=== PATIENT | male | born 1945 | race Caucasian/White ===

== ENCOUNTER → 2020-08-03 | Outpatient (CLI) | payer OTHER | LOC: HYPER 13:14 | PROVIDERS: ATTEND Emergency Medicine | DX: T81.89XA Other complications of procedures, not elsewhere classified, initial encounter (principal); E11.621 Type 2 diabetes mellitus with foot ulcer; L89.893 Pressure ulcer of other site, stage 3; L97.521 Non-pressure chronic ulcer of other part of left foot limited to breakdown of skin; E11.21 Type 2 diabetes mellitus with diabetic nephropathy; E11.319 Type 2 diabetes mellitus with unspecified diabetic retinopathy without macular edema; E11.40 Type 2 diabetes mellitus with diabetic neuropathy, unspecified; E11.22 Type 2 diabetes mellitus with diabetic chronic kidney disease; I13.0 Hypertensive heart and chronic kidney disease with heart failure and stage 1 through stage 4 chronic kidney disease, or unspecified chronic kidney disease; N18.9 Chronic kidney disease, unspecified; I50.9 Heart failure, unspecified; E66.01 Morbid (severe) obesity due to excess calories; E78.5 Hyperlipidemia, unspecified; I25.10 Atherosclerotic heart disease of native coronary artery without angina pectoris; I25.5 Ischemic cardiomyopathy; I48.0 Paroxysmal atrial fibrillation; K21.9 Gastro-esophageal reflux disease without esophagitis; Z79.82 Long term (current) use of aspirin; Z95.0 Presence of cardiac pacemaker; Z79.4 Long term (current) use of insulin; Z87.891 Personal history of nicotine dependence; Z95.1 Presence of aortocoronary bypass graft; Z98.49 Cataract extraction status, unspecified eye; Z68.41 Body mass index [BMI] 40.0-44.9, adult; Y92.238 Other place in hospital as the place of occurrence of the external cause; Y83.8 Other surgical procedures as the cause of abnormal reaction of the patient, or of later complication, without mention of misadventure at the time of the procedure ==

== ENCOUNTER → 2020-09-12 | Outpatient (CLI) | payer OTHER ==
[~2020-09-12] MED LIST: ASA81BEC PO; CARVEDILOL6.25 M1 PO; CLOPIDOGREL75 MG PO; HYDRALAZINE 2525 M1 PO; LIPITOR80 MG PO; NEURONTIN 400M400 M2 PO; NOVOLIN N100 UNIT/3 SUBQ; PACERONE 200 M200 M1 PO; PAIN RELIEF325 MG PO; PROTONIX40 M2 PO; ROXICODONE5 M2 PO; TAMSULOSIN HCL0.4 MG PO; TRAMADOL 50 MG50 MG PO
== END ==
LOC: HYPER 08-29 11:38
PROVIDERS: ATTEND Emergency Medicine
DX: T81.89XD Other complications of procedures, not elsewhere classified, subsequent encounter (principal); E11.621 Type 2 diabetes mellitus with foot ulcer; L89.893 Pressure ulcer of other site, stage 3; L97.521 Non-pressure chronic ulcer of other part of left foot limited to breakdown of skin; E11.319 Type 2 diabetes mellitus with unspecified diabetic retinopathy without macular edema; E11.40 Type 2 diabetes mellitus with diabetic neuropathy, unspecified; E78.5 Hyperlipidemia, unspecified; I25.10 Atherosclerotic heart disease of native coronary artery without angina pectoris; H35.30 Unspecified macular degeneration; K21.9 Gastro-esophageal reflux disease without esophagitis; E11.22 Type 2 diabetes mellitus with diabetic chronic kidney disease; I13.0 Hypertensive heart and chronic kidney disease with heart failure and stage 1 through stage 4 chronic kidney disease, or unspecified chronic kidney disease; I50.9 Heart failure, unspecified; N18.30 Chronic kidney disease, stage 3 unspecified; I48.0 Paroxysmal atrial fibrillation; Z87.891 Personal history of nicotine dependence; Z79.82 Long term (current) use of aspirin; Z79.4 Long term (current) use of insulin; Z99.2 Dependence on renal dialysis; Y83.8 Other surgical procedures as the cause of abnormal reaction of the patient, or of later complication, without mention of misadventure at the time of the procedure

== ENCOUNTER → 2020-09-12 | Outpatient (CLI) | payer OTHER, MEDICARE | LOC: SJCVCIMAG 08-29 09:00 | PROVIDERS: ATTEND Emergency Medicine | DX: I70.245 Atherosclerosis of native arteries of left leg with ulceration of other part of foot (principal); L97.529 Non-pressure chronic ulcer of other part of left foot with unspecified severity; E11.621 Type 2 diabetes mellitus with foot ulcer; I12.0 Hypertensive chronic kidney disease with stage 5 chronic kidney disease or end stage renal disease; E11.22 Type 2 diabetes mellitus with diabetic chronic kidney disease; N18.5 Chronic kidney disease, stage 5; I25.810 Atherosclerosis of coronary artery bypass graft(s) without angina pectoris; E78.00 Pure hypercholesterolemia, unspecified; Z79.4 Long term (current) use of insulin; Z95.1 Presence of aortocoronary bypass graft; Z95.0 Presence of cardiac pacemaker; Z79.899 Other long term (current) drug therapy ==

== ENCOUNTER 2020-09-14 08:52 | Observation (INO) | payer OTHER, MEDICARE ==
[~2020-09-14] VITALS: Ht 175.3 cm; Wt 113.6 kg
[2020-09-14 09:07] VITALS: BP 143/44
[2020-09-14] MEDS ORDERED: PAIN RELIEF325 MG PO (09:09)
[2020-09-14] MEDS ORDERED: ASA81BEC PO (09:10)
[2020-09-14] MEDS ORDERED: LIPITOR80 MG PO (09:10)
[2020-09-14] MEDS ORDERED: PACERONE 200 M200 M1 PO (09:10)
[2020-09-14] MEDS ORDERED: NEURONTIN 400M400 M2 PO (09:11)
[2020-09-14] MEDS ORDERED: CARVEDILOL6.25 M1 PO (09:11)
[2020-09-14] MEDS ORDERED: NOVOLIN N100 UNIT/3 SUBQ (09:17)
[2020-09-14] MEDS ORDERED: HYDRALAZINE 2525 M1 PO (09:17)
[2020-09-14] MEDS ORDERED: ROXICODONE5 M2 PO (09:18)
[2020-09-14] MEDS ORDERED: PROTONIX40 M2 PO (09:19)
[2020-09-14] MEDS ORDERED: TRAMADOL 50 MG50 MG PO (09:19)
[2020-09-14] MEDS ORDERED: TAMSULOSIN HCL0.4 MG PO (09:19)
[2020-09-14 09:24] LABS: HEMATOCRIT 28.2 % (42.0-52.0); HEMOGLOBIN 9.3 gm/dL (14.0-18.0); MCH 29.6 pg (26.0-34.0); MCHC 32.8 g/dL (28.0-37.0); MCV 90.3 fL (80.0-100.0); RBC 3.13 mil/uL (4.50-6.00); RDW 17.7 % (10.5-14.5)
[2020-09-14 09:35] LABS: CALCIUM 8.2 mg/dL (8.5-10.1); CREATININE 4.6 mg/dL (0.7-1.3); POTASSIUM 4.7 mmol/L (3.5-5.1)
[2020-09-14] MEDS ORDERED: CLOPIDOGREL75 MG PO (12:20)
[2020-09-14 18:39] VITALS: BP 109/53
--- NOTE | 2020-09-14 19:26 | NUR ---
PATIENT ARRIVED FROM IR VIA BED, VSS AND ORIENTED TO THE ROOM. AND REPORT GIVEN TO CLINTON QUIGLEY.
[2020-09-14 20:45] VITALS: BP 113/41
[2020-09-15 00:30] VITALS: BP 115/42
[2020-09-15 04:45] VITALS: BP 127/45
[2020-09-15 05:28] LABS: HEMATOCRIT 27.1 % (42.0-52.0); HEMOGLOBIN 8.9 gm/dL (14.0-18.0); MCH 29.9 pg (26.0-34.0); MCV 90.7 fL (80.0-100.0); RBC 2.99 mil/uL (4.50-6.00); WBC 4.7 thou/uL (4.0-11.0)
--- NOTE | 2020-09-15 05:34 | NUR ---
PT ADMITTED FOR OBSERVATION S/P LEFT LEG STENT. AO X4. DENIES PAIN, CHEST PAIN NAUSEA OR VOMITING. VITALS STABLE WITH SOFT BPs. HYDRALAZINE HELD. NO OTHER CONCERNS. ANTICIPATE TO DC THIS AM.
[2020-09-15 06:14] LABS: CALCIUM 8.2 mg/dL (8.5-10.1); CREATININE 5.5 mg/dL (0.7-1.3); POTASSIUM 5.1 mmol/L (3.5-5.1)
--- NOTE | 2020-09-15 11:08 | NUR ---
ASSESSMENT CHARTED - PT STATING THAT HE IS LEAVING THE HOSPTIAL AT 0800 AND HE NEEDS TO GET DRESSED - STARTED CALLING OUT FOR THIS AT 0645. PT DRESSED - SEEN BY [facility] REPRESENTATIVE AND AND DISCHARGE ORDERS OBTAINED - PATIENT CALLED OUT AND SAID [facility] WAS HERE HE NEEDED TO LEAVE - WOULD NOT GO THROUGH D/C PAPERS WITH NURSE WANTED OUT OF HOSPITAL AND STATEDD JUST GIVEN THEM TO ME I WILL READ THEM WHEN I GET HOME - HIS "CARER" PAM WAITING FOR HIM PT INTO CAR AND THEN SHE LOADED WHEELCHAIR - ASKED IF THERE WAS ANYTHING SHE NEEDED TO KNOW AND IF HE HAD PAPERS - I STATED THAT HE DID HAVE D/C PAPERS AND THAT ONCE READ IF SHE HAD ANY QUESTIONS SHE COULD CALL THE UNIT. NO CO'S AT TIME OF D/C.
== END 2020-09-15 08:44 | disposition home or self-care (01) ==
LOC: CATH 08:52 → 2N 18:28
PROVIDERS: Nurse Practitioner Adult Health; ADMIT Nuclear Medicine Nuclear Cardiology; ATTEND Nuclear Medicine Nuclear Cardiology
DX: I70.202 Unspecified atherosclerosis of native arteries of extremities, left leg (principal); I25.10 Atherosclerotic heart disease of native coronary artery without angina pectoris; L97.929 Non-pressure chronic ulcer of unspecified part of left lower leg with unspecified severity; I70.1 Atherosclerosis of renal artery; E78.5 Hyperlipidemia, unspecified; I12.9 Hypertensive chronic kidney disease with stage 1 through stage 4 chronic kidney disease, or unspecified chronic kidney disease; E11.22 Type 2 diabetes mellitus with diabetic chronic kidney disease; N18.9 Chronic kidney disease, unspecified; Z95.1 Presence of aortocoronary bypass graft; Z99.2 Dependence on renal dialysis; Z79.82 Long term (current) use of aspirin; Z79.899 Other long term (current) drug therapy

== ENCOUNTER → 2020-10-12 | Outpatient (CLI) | payer OTHER, MEDICARE | LOC: HYPER 10-11 14:53 | PROVIDERS: ATTEND Emergency Medicine | DX: T81.89XD Other complications of procedures, not elsewhere classified, subsequent encounter (principal); E11.621 Type 2 diabetes mellitus with foot ulcer; L89.893 Pressure ulcer of other site, stage 3; L97.521 Non-pressure chronic ulcer of other part of left foot limited to breakdown of skin; E11.319 Type 2 diabetes mellitus with unspecified diabetic retinopathy without macular edema; E11.40 Type 2 diabetes mellitus with diabetic neuropathy, unspecified; E78.5 Hyperlipidemia, unspecified; I25.10 Atherosclerotic heart disease of native coronary artery without angina pectoris; H35.30 Unspecified macular degeneration; K21.9 Gastro-esophageal reflux disease without esophagitis; E11.21 Type 2 diabetes mellitus with diabetic nephropathy; E11.22 Type 2 diabetes mellitus with diabetic chronic kidney disease; I13.0 Hypertensive heart and chronic kidney disease with heart failure and stage 1 through stage 4 chronic kidney disease, or unspecified chronic kidney disease; I50.9 Heart failure, unspecified; N18.30 Chronic kidney disease, stage 3 unspecified; I25.5 Ischemic cardiomyopathy; I48.0 Paroxysmal atrial fibrillation; Z87.891 Personal history of nicotine dependence; Z79.82 Long term (current) use of aspirin; Z79.4 Long term (current) use of insulin; Z99.2 Dependence on renal dialysis; Y83.8 Other surgical procedures as the cause of abnormal reaction of the patient, or of later complication, without mention of misadventure at the time of the procedure ==

== ENCOUNTER 2020-12-27 09:53 | Inpatient (IN) | payer OTHER, MEDICARE ==
[~2020-12-27] VITALS: Ht 175.3 cm; Wt 99.8 kg
[2020-12-27 09:54] VITALS: BP 129/51
[2020-12-27 10:41] LABS: EOSINOPHILS 2.6 % (0.0-3.0); HEMOGLOBIN 9.5 gm/dL (14.0-18.0); LYMPHOCYTES 15.7 % (24.0-44.0); MCH 31.2 pg (26.0-34.0); MCHC 32.7 g/dL (28.0-37.0); MCV 95.3 fL (80.0-100.0); MONOCYTES 10.4 % (1.0-8.0); PLATELET COUNT 180 thou/uL (150-400); POLYS 70.3 % (36.0-66.0); RBC 3.04 mil/uL (4.50-6.00); RDW 13.7 % (10.5-14.5); WBC 4.3 thou/uL (4.0-11.0)
[2020-12-27 11:05] LABS: ANION GAP 12 mmol/L (7-16); BUN 48 mg/dL (7-18); CALCIUM 7.8 mg/dL (8.5-10.1); CHLORIDE 97 mmol/L (98-107); CO2 27 mmol/L (21-32); CREATININE 6.9 mg/dL (0.7-1.3); GLUCOSE 130 mg/dL (74-106); POTASSIUM 4.4 mmol/L (3.5-5.1); SODIUM 136 mmol/L (136-145)
[2020-12-27 11:15] LABS: SGOT 12 U/L (15-37); SGPT 17 U/L (16-63); TOTAL BILIRUBIN 0.4 mg/dL (0.2-1.0); TOTAL PROTEIN 5.6 g/dL (6.4-8.2); TROPONIN-I <0.06 ng/mL (<0.06)
--- NOTE | 2020-12-27 12:48 | EKG ---
[address] [employer] [place] [address] ELECTROCARDIOGRAM REPORT Name: ROBERTO WILLIAM [id number] Admission: 12/27/20 Attend Phys: Discharge: Date of : 43 Report #: [id number] [facility] ED Test Date: 2020-12-27 Test Time: 10:04:07 Pat Name: ROBERTO WILLIAM Department: Room: Gender: M Veterinarian Assistant: RAMAN : 1945 Requested By: Abiola Cardenas Order Number: [id number] MD: Sky Mcginnis Measurements Intervals Farrell Rate: 65 P: 0 OR: 63 QRS: 163 QRSD: 200 T: 165 QT: 532 QTc: 554 Interpretive Statements Ventricular-paced complexes No further analysis attempted due to paced rhythm No previous ECG available for comparison Electronically Signed On 12-27-2020 12:48:07 [employer]ATER by Sky Mcginnis [email or web address] <ELECTRONICALLY SIGNED> By: Sky Mcginnis MD, [facility] 12/27/20 1248 1004 1004 Sky Mcginnis MD, FACC /EPI
[2020-12-27] MEDS ORDERED: FLOMAX0.4 MG PO (13:11)
[2020-12-27] MEDS ORDERED: PROTONIX40 M2 PO (13:11)
--- NOTE | 2020-12-27 15:19 | 2DMMODE ---
[facility] [place] [address] 2 D/M-MODE ECHOCARDIOGRAM Name: ROBERTO WILLIAM Room #: 170-8 ADM IN .R.#: [id number] Admission: 12/27/20 Attend Phys: Irvin Levine MD Discharge: Date of : 43 Report #: [id number] THIS REPORT FOR: cc: FAM - Family physician unknown FAM - Family physician unknown Sky Mcginnis MD [facility] ~ ADDENDUM APPROVED REPORT Study performed: 12/27/2020 14:08:46 EXAM: Comprehensive 2D, Doppler, and color-flow Echocardiogram Patient Location: ER Status: routine BSA: 2.15 HR: 62 bpm BP: 115/52 mmHg Rhythm: NSR Other Information Study Quality: Adequate Technically limited study due to body habitus, patient supine. Indications Dyspnea Elevated BNP. Hx: CABG, Pacemaker, PVD, HTN, HLD, Diabetes. 2D Dimensions RVDd: 42.19 mm IVSd: 11.31 (7-11mm) LVOT Diam: 20.86 (18-24mm) LVDd: 58.81 mm PWd: 12.56 (7-11mm) Ascending Ao: 25.53 (22-36mm) LVDs: 46.69 (25-40mm) Left Atrium: 44.97 (27-40mm) Aortic Root: 30.61 mm Volumes Left Atrial Volume (Systole) Single Plane 4CH: 99.07 mL Single Plane 2CH: 86.04 mL LA ESV Index: 46.00 mL/m2 Aortic Valve AoV Peak Selvin.: 1.55 m/s [facility] [place] [place] [address] [place] [address] 2 D/M-MODE ECHOCARDIOGRAM Name: ROBERTO WILLIAM Room #: 170-8 ADM IN Braden#: [id number] Admission: 12/27/20 Attend Phys: Irvin Levine MD Discharge: Date of : 43 Report #: [id number] AO Peak Gr.: 9.67 mmHg LVOT Max P.04 mmHg LVOT Max V: 0.87 m/s JENNIFER Vmax: 1.91 cm2 Mitral Valve E/A Ratio: 1.5 MV Decel. Time: 308.13 ms MV E Max Selvin.: 1.43 m/s MV A Selvin.: 0.93 m/s MV PHT: 89.36 ms IVRT: 64.59 ms Pulmonary Valve PV Peak Selvin.: 0.90 m/s PV Peak Gr.: 3.24 mmHg Pulmonary Vein P Vein S: 0.49 m/s P Vein D: 0.54 m/s P Vein S/D Ratio: 0.91 Tricuspid Valve TR Peak Selvin.: 3.57 m/s RAP Estimate: 10.00 mmHg TR Peak Gr.: 51.12 mmHg PA Pressure: 60.00 mmHg Left Ventricle Left ventricle is mildly dilated. Moderate concentric left ventricular hypertrophy. Left ventricular systolic function is moderately decreased. LVEF is 35-40%. Moderate diastolic dysfunction is present. Right Ventricle Right ventricle is mildly dilated Right ventricle is mildly hypokinetic. Pacemaker lead is present in the right ventricle. Atria Left atrium is moderately dilated. Right atrium is at the upper limits of normal. Aortic Valve The aortic valve is normal in structure. Aortic valve is calcified. Trace aortic regurgitation. There is no aortic valvular stenosis. Mitral Valve Moderate mitral annular calcification. Trace mitral regurgitation. No [facility] [place] [place] [employer] [address] 2 D/M-MODE ECHOCARDIOGRAM Name: ROBERTO WILLIAM Room #: 170-8 ADM IN .R.#: [id number] Admission: 12/27/20 Attend Phys: Irvin Levine MD Discharge: Date of : 43 Report #: [id number] evidence of mitral valve stenosis. Tricuspid Valve The tricuspid valve is normal in structure. Trace to mild tricuspid regurgitation. Estimated PAP 60mmHg. Pulmonic Valve The pulmonary valve is normal in structure. Trace pulmonic regurgitation. Great Vessels The aortic root is normal in size. The ascending aorta is normal in size. IVC is dilated and collapses <50% with inspiration. Pericardium There is no pericardial effusion. <Conclusion> Left ventricle mildly dilated, moderate concentric hypertrophy "D-shaped" left ventricle compatible with right ventricular pressure overload Ejection fraction 35-40% with severe mid anteroapical and distal inferoapical hypokinesis, apex not well seen Right ventricle mildly dilated, mild hypokineses Pacer wire detected in the right ventricle Mild left atrial enlargement Color-flow Doppler study was performed of the aortic/mitral/tricuspid/pulmonary valve Mild aortic valve calcification without stenosis Trace mitral valve insufficiency Trace tricuspid valve insufficiency Pulmonary artery systolic pressure estimated at 60 mmHg IVC moderately dilated minimally responsive to respiration No pericardial effusion <ELECTRONICALLY SIGNED> By: Sky Mcginnis MD, FACC 12/27/201518 18 18 Sky Mcginnis MD, FACC /INF
[2020-12-27 18:57] VITALS: BP 158/47
[2020-12-27 19:30] VITALS: BP 147/55
[2020-12-27 21:28] VITALS: BP 141/64
--- NOTE | 2020-12-27 23:30 | NUR ---
PT WAS ADMITTED TO THE FLOOR FROM THE ER IN A STABLE CONDITION.PT AXOX3.ADMISSION HX,EDUCATION AND ASSESSMENT COMPLETED.PT MISSED HIS DIALYSIS TODAY POSSIBLY HAVING DIALYSIS TOMORROW.FISTULA TO HIS L UPPERARM POSITIVE FOR THRILL AND BRUIT.CALL LIGHT WITHIN REACH.
[2020-12-28 06:46] LABS: ALBUMIN 2.8 g/dL (3.4-5.0); CALCIUM 7.7 mg/dL (8.5-10.1); PHOSPHORUS 5.3 mg/dL (2.5-4.9); POTASSIUM 4.5 mmol/L (3.5-5.1)
[2020-12-28 06:47] LABS: CREATININE 8.4 mg/dL (0.7-1.3)
[2020-12-28 07:05] VITALS: BP 109/63
--- NOTE | 2020-12-28 09:36 | NUR ---
ASSUMED CARE OF PATIENT HE IS ALERT XS 4 WILL HAVE DIAYLSIS TODAY. TOOK AM PILLS, ATE BREAKFAST. NO PAIN OR RESP DISTRESS. PT IS PLEASANT AND COOPERATIVE WITH CARE.
--- NOTE | 2020-12-28 09:48 | NUR ---
ASSESSMENT: CM REVIEWED CHART AND MET WITH PATIENT. PT IS HERE DUE TO WEAKNESS/AMS. PT HAS HX OF ESRD AND GETS DIALYSIS T-TH-SAT AT [facility]. PT MISSED DIALYSIS YESTERDAY DUE TO WEAKNESS. CM SPOKE WITH BEDSIDE RN WHO REPORTS PT WILL GET DIALYSIS TODAY. CM NOTIFIED [facility] OF PATIENTS ADMISSION AND FAXED CLINICAL. PT REPORTS HE LIVES ALONE BUT HAS TWO CAREGIVERS. PTS PRIMARY CAREGIVER IS HIS ADOPTED DAUGHTER PAM HE STATES. SHE IS WITH PATIENT EVERYDAY AND [facility] ON [id number]. CM SPOKE WITH PAM WHO REPORTS THEY TRY TO KEEP PATIENT INDEPENDENT POSSIBLE AND HE HAS BEEN ABLE TO PUT HIMSELF TO SLEEP AND THEN SHE LEAVES FOR THE DAY AND COMES BACK THE NEXT DAY. PT IS ABLE TO AMBULATE TO THE BATHROOM AND TAKE CARE OF HIMSELF THROUGH THE NIGHT. PT HAS TWO WALKERS AND A WHEELCHAIR. PAM TAKES HIM TO DIALYSIS. PT WAS SET UP TO START WITH [facility] BUT THEN ENDED UP AT THE HOSPITAL. OCTAVIO CALLED [facility] TO NOTIFY THEM OF ADMISSION AND FAXED CLINICAL. PAM STATING [facility] BUT WAS RE-ROUTED HERE BY [facility]UL[facility]UE TO [facility] SHE STATES. CM NOTIFIED UR RN OF THIS INFORMATION SHE WANTS TO MAKE SURE THE [facility] KNOWS [facility] IS HERE. OCTAVIO WILL CONTINUE TO FOLLOW TO ASSIST NEEDED.
--- NOTE | 2020-12-28 13:29 | NUR ---
PATIENT RESTING IN BED WATCHING TV/ PT IS HAVING DIAYLSIS AT THIS TIME.
[2020-12-28 16:45] VITALS: BP 118/63
[2020-12-28 19:19] VITALS: BP 137/62
--- NOTE | 2020-12-29 00:17 | NUR ---
ASSESSMENT COMPLETED. PT IS ALERT AND ORIENTED WITH SOME CONFUSION. HE HAD A BM-INCONTINENT EPISODE. DENIES PAIN. LEFT GROIN WITH PRESSURE DRSG IN PLACE. GENERAL NEUROPATHY TO BLE.DENIES NAUSEA OR VOMITING. PT C/O SOME DOFFICULTY BREATHING, SATS ON ROOM AIR WAS 97%, PT PLACED ON 02/1L/NC FOR COMFORT.NO S/SX OF RESP DISTRESS. ANURIC.DENIES CHEST PAIN.AFEBRILE. WILL CONTINUE WITH POC TILL EOS.
[2020-12-29 07:40] VITALS: BP 143/74
[2020-12-29 10:14] LABS: CHOLESTEROL 102 mg/dL (<200); HDL CHOLESTEROL 36 mg/dL (>40); LDL CHOLESTEROL 41 mg/dL (<100); TC:HDL 2.8 Ratio (Not establshd); TRIGLYCERIDE 126 mg/dL (<150); VLDL 25 mg/dL (<40)
--- NOTE | 2020-12-29 12:21 | NUR ---
on-going assessment: cm reviewed chart and spoke with attending. pt is receiving dialysis today. patient work with therapy yesterday and they are recommending patient can return home with home health. [facility] following and can accept when medically stable. cm will continue to follow to assist as needed.
[2020-12-29 15:50] VITALS: BP 122/51
--- NOTE | 2020-12-29 18:33 | NUR ---
PT A&OX4, VSS, DENIES PAIN. PATIENT COMPLETED DIALYSIS TODAY. PATIENT TOLERATING DIET. DIALYSIS NURSE POINTED OUT A LACERATION AROUND PATIENTS FISTULA, HE SECURED IT WITH SKIN PREP, AND TAPE OVER. DRESSING C/D/I. BRUIT AND THRILL PRESENT. IV PATENT RIGHT ARM, FISTULA LEFT FOREARM. PATIENT HAD LOOSE STOOL TODAY. NO SIGNS OF DISTRESS. WILL CONTINUE TO MONITOR.
--- NOTE | 2020-12-29 22:04 | NUR ---
ASSESSMENT COMPLETED. PT ALERT AND ORIENTED. IN A PLEASANT MOOD. SAYS HE DID NOT EAT DINNER , GIVEN A COUPLE OF YOGHURTS. BS AT HS WAS 124. PT DENIES PAIN. LAV FISTULA WITH BRUISING, OTHERWISE NO BLEEDING. AFEBRILE.PLACED ON /NC AT SLEEP TINME,DENEIS FURTHER NEEDS. FALL PREC IN PLACE, CALL LIGHT WITHIN REACH.
[2020-12-30 08:17] VITALS: BP 137/57
[2020-12-30 11:26] VITALS: BP 137/57
[2020-12-30 11:29] VITALS: BP 137/57
--- NOTE | 2020-12-30 11:43 | NUR ---
ON-GOING ASSESSMENT: CM REVIEWED CHART AND SPOKE WITH PATIENT. PT HAS ORDERS TO DISCHARGE HOME WITH HOME HEALTH TODAY. CM NOTIFIED [facility] AND FAXED DISCHARGE ORDERS AND CONFIRMED THEY RECEIVED THEM. OCTAVIO SPOKE WITH PATIENT AND HIS CAREGIVER PAM WHO IS AGREEABLE WITH PLAN BUT SHE CANNOT TRANSPORT HIM HOME SHE IS CURRENTLY IN [place], [place]. OCTAVIO SPOKE WITH CM DIRECTOR AND WHEELCHAIR VAN APPROVED FOR PATIENT AND VOUCHERED BY CM. OCTAVIO CONTACTED [facility] TO ARRANGE [phone] AND THEY ARE COMING SOONEST AVAILABLE. OCTAVIO NOTIFIED BEDSIDE RN.
--- NOTE | 2020-12-30 12:21 | NUR ---
PATIENT DISCHARGED AT 1218 WITH ALL BELONGINGS. ALL DOCUMENTS SIGNS PATIENT LEAVES WITH TRANSPORTATION SERVICE.
== END 2020-12-30 13:43 | disposition home health service (06) | DRG 70 ==
LOC: ER 09:53 → EROBS 13:10 → 4S 13:10
PROVIDERS: Emergency Medicine; Hospitalist; ADMIT Internal Medicine; ATTEND Internal Medicine
DX: G93.41 Metabolic encephalopathy (principal); N18.6 End stage renal disease; I50.20 Unspecified systolic (congestive) heart failure; I13.2 Hypertensive heart and chronic kidney disease with heart failure and with stage 5 chronic kidney disease, or end stage renal disease; E11.51 Type 2 diabetes mellitus with diabetic peripheral angiopathy without gangrene; I25.10 Atherosclerotic heart disease of native coronary artery without angina pectoris; E11.22 Type 2 diabetes mellitus with diabetic chronic kidney disease; E78.00 Pure hypercholesterolemia, unspecified; F03.90 Unspecified dementia, unspecified severity, without behavioral disturbance, psychotic disturbance, mood disturbance, and anxiety; I48.0 Paroxysmal atrial fibrillation; I25.5 Ischemic cardiomyopathy; R63.4 Abnormal weight loss; Z60.2 Problems related to living alone; Z95.1 Presence of aortocoronary bypass graft; Z91.19 Patient's noncompliance with other medical treatment and regimen; Z95.820 Peripheral vascular angioplasty status with implants and grafts; Z79.82 Long term (current) use of aspirin; Z79.899 Other long term (current) drug therapy; Z68.32 Body mass index [BMI] 32.0-32.9, adult; Z99.2 Dependence on renal dialysis
CPT/HCPCS: 10100; 10102; 32100

== ENCOUNTER → 2021-01-16 | Outpatient (CLI) | payer OTHER, MEDICARE ==
[~2021-01-16] MED LIST changes: +FLOMAX0.4 MG PO
== END ==
LOC: SJCVCIMAG 12-14 09:32
PROVIDERS: ATTEND Internal Medicine Cardiovascular Disease
DX: I25.10 Atherosclerotic heart disease of native coronary artery without angina pectoris (principal); E11.22 Type 2 diabetes mellitus with diabetic chronic kidney disease; I13.10 Hypertensive heart and chronic kidney disease without heart failure, with stage 1 through stage 4 chronic kidney disease, or unspecified chronic kidney disease; N18.9 Chronic kidney disease, unspecified; E78.5 Hyperlipidemia, unspecified; I73.9 Peripheral vascular disease, unspecified; Z79.4 Long term (current) use of insulin; Z95.0 Presence of cardiac pacemaker; Z79.82 Long term (current) use of aspirin; Z79.899 Other long term (current) drug therapy

== ENCOUNTER → 2021-04-26 | Outpatient (CLI) | payer OTHER, MEDICARE | LOC: SJCVCIMAG 08:57 | PROVIDERS: ATTEND Internal Medicine Cardiovascular Disease | DX: E11.621 Type 2 diabetes mellitus with foot ulcer (principal); L97.529 Non-pressure chronic ulcer of other part of left foot with unspecified severity; E11.51 Type 2 diabetes mellitus with diabetic peripheral angiopathy without gangrene; I25.10 Atherosclerotic heart disease of native coronary artery without angina pectoris; E78.00 Pure hypercholesterolemia, unspecified; I10 Essential (primary) hypertension; I77.9 Disorder of arteries and arterioles, unspecified; M79.662 Pain in left lower leg; I65.23 Occlusion and stenosis of bilateral carotid arteries; Z79.4 Long term (current) use of insulin; Z95.1 Presence of aortocoronary bypass graft; Z95.0 Presence of cardiac pacemaker; Z79.899 Other long term (current) drug therapy ==